=== PATIENT | female | born 1990 | race Caucasian/White ===

== ENCOUNTER 2016-09-07 08:36 | Emergency (ER) ==
[2016-09-07 09:14] VITALS: BP 106/071
--- NOTE | 2016-09-07 10:13 | PROVIDER DOCUMENTATION ---
HPI-Rash/Wound/ReCheck - General Chief Complaint: Extremity Pain Stated Complaint: TOE PAIN Time Seen by Provider: 09/07/16 09:52 Source: patient Allergies/Adverse Reactions: Allergies Allergy/AdvReac Type Severity Reaction Status Date / Time cetirizine HCl * Allergy Intermediate RASH Verified 06/15/16 13:56 [From Zyrtec] hydrocodone bitartrate * Allergy Intermediate ITCHING; Verified 06/15/16 13:56 [From Lortab] VOMITING loratadine [From Claritin] Allergy Intermediate RASH Verified 06/15/16 13:56 tramadol Allergy NAUSEA/VOMI Verified 06/15/16 13:56 TING Home Medications: Home Medication List Medication Instructions Recorded Confirmed Last Taken Type No Home Medications 06/15/16 08/03/16 Unknown History - History of Present Illness-Dermatology Nature of Presenting Problem: PT C/O PLANTAR WART TO LITTLE TOE OF RIGHT FOOT. Location: reports: feet Quality: reports: stinging Severity: reports: mild Onset/Duration: reports: other (1 YEAR) Context/Associated Symptoms: reports: denies symptoms Identifiable cause?: Yes Locality of Occurance: Home Similar Symptoms Previously?: No Recently seen or treated by another doctor?: No Review of Systems - Adult - REVIEW OF SYSTEMS - ADULT Constitutional: denies: chills, fever, night sweats Eyes: denies: dry eyes, decreased vision, double vision Ears, Nose, Mouth & Throat: denies: ear pain, loose teeth, mouth/dental pain, throat swelling Cardiovascular: denies: chest pain, irregular heart rate, palpitations Respiratory: denies: cough, shortness of breath, wheezing Gastrointestinal: denies: abdominal pain, diarrhea, nausea, vomiting Genitourinary: denies: dysuria, flank pain, hematuria Musculoskeletal: denies: back pain, muscle aches, neck pain Integumentary: reports: skin sores/ulcer (PLANTAR WART ON RIGHT FOOT LITTLE TOE. ). 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 on dangers of tobacco.: Discussed manners to quit use, and f/u contacts for add'l counseling. Substance Use: marijuana Alcohol Use Frequency: never Living Situation: family Physical Exam-General - PHYSICAL EXAM-ADULT Initial Vital Signs Reviewed: Yes - CONSTITUTIONAL General Appearance: appears well, alert, no apparent distress - RESPIRATORY Respiratory: chest non-tender, lungs clear, normal breath sounds, no pleuratic chest pain, no respiratory distress - CARDIOVASCULAR Cardiovascular: normal peripheral pulses, regular rate, rhythm, no edema, no gallop, no JVD, no murmur - GASTROINTESTINAL (ABDOMEN) Abdominal Exam: normal bowel sounds, non tender, soft, no organomegaly, no pulsatile mass - MUSCULOSKELETAL Extremity: normal range of motion, non-tender, normal gait, normal inspection, other (PLANTAR WART LITTLE TOE RIGHT FOOT) - SKIN Integumentary: normal color, normal turgor, warm/dry - PSYCHIATRIC Psych/Mental Status: normal mood/affect, normal thought content, normal thought process, oriented x 3 Departure - Departure Time of Disposition Order: 10:16 DIAGNOSIS: Plantar wart Disposition: HOME 01 Certified Medical Emergency: Emergent Condition: Good Additional Instructions: ED Follow Up Instructions: You have been treated by a care provider in the Emergency Department. These instructions are being provided to you so you can have an understanding of how to care for yourself upon discharge. Upon discharge from the Emergency Department, you are responsible for making arrangements for follow-up care by a physician of your choice. Take all prescribed medications as directed. Return to the Emergency Department immediately for any new or worsening symptoms. You may call the Physician Referral phone number at [phone] to obtain a list of Physicians who are taking new patients. Attestation - Scribe Verification/Attestation Scribe:: Ramsey Valero Acting as Scribe for:: Ramon Lopez Scribe documention review:: This chart was documented by a scribe and accurately reflects the service the provider performed and the decisions made by the provider.
== END 2016-09-07 10:19 | disposition home or self-care (01) ==
LOC: P.ED 08:36
DX: B07.0 Plantar wart (principal); Z89.022 Acquired absence of left finger(s); F17.210 Nicotine dependence, cigarettes, uncomplicated; Z71.6 Tobacco abuse counseling